=== PATIENT | male | born 1965 ===

== ENCOUNTER 2019-04-10 10:29 | Outpatient (CLI) | payer BC, OTHER ==
--- NOTE | 2019-04-10 12:51 | Diagnostic Imaging Report ---
Indication: Cough Technique: 2 views of the chest Comparison: None Findings: Lungs and pleural spaces are clear. The heart size is normal. The bones are unremarkable. Azygos lobe and fissure are incidentally noted Impression: Negative
== END 2019-04-10 12:20 | disposition home or self-care (01) ==
LOC: RAD 10:29
DX: Z01.818 Encounter for other preprocedural examination (principal); Z01.812 Encounter for preprocedural laboratory examination; R05 Cough
CPT/HCPCS: 71046